=== PATIENT | male | born 1945 | race Caucasian/White ===

== ENCOUNTER 2017-09-18 22:32 | Emergency (ER) | payer MEDICARE, OTHER ==
--- NOTE | 2017-09-19 00:02 | EDM.PDOC ---
ED HPI GENERAL MEDICAL PROBLEM - General Chief Complaint: Gastrointestinal Problem Stated Complaint: ILLNESS Time Seen by Provider: 09/18/17 23:30 Source of Information: Reports: EMS, Care Home Records History Limitations: Reports: Physical Impairment - History of Present Illness INITIAL COMMENTS - FREE TEXT/NARRATIVE: 72-year-old male with a recent stroke has a malfunctioning G-tube which has only been present for 48 hours. It is plugged. Onset: Sudden Duration: Hour(s): (Last 5-6 hours) Location: Reports: Abdomen Associated Symptoms: Denies: Fever/Chills, Nausea/Vomiting - Related Data Allergies Allergy/AdvReac Type Severity Reaction Status Date / Time Penicillins Allergy Hives Verified 09/20/17 08:43 Hssryzf-Gba-Vok Reductase Allergy Cannot Verified 09/20/17 08:43 Inhibitor Remember Home Meds: Home Meds Aspirin 81 mg GTUBE BEDTIME 09/20/17 [History] Calcium Carbonate/Vitamin D3 [Calcium Carbonate/Vitamin D 600 MG-200 Unit] 1 tab GTUBE DAILY 09/20/17 [History] Escitalopram [Lexapro] 10 mg PO BEDTIME 09/20/17 [History] Flecainide Acetate 75 mg GTUBE BID 09/20/17 [History] Multivitamin [Multivitamins] 1 each PO DAILY 09/20/17 [History] Rivaroxaban [Xarelto] 20 mg GTUBE DAILY 09/20/17 [History] Rosuvastatin [Crestor] 10 mg GTUBE ASDIRECTED 09/20/17 [History] Tamsulosin HCl [Flomax] 0.8 mg GTUBE BEDTIME 09/20/17 [History] Past Medical History HEENT History: Reports: Hard of Hearing, Impaired Vision Cardiovascular History: Reports: Afib, High Cholesterol, [place], Stents, Other (See Below) Other Cardiovascular History: x4 stents Gastrointestinal History: Reports: GERD, Hiatal Hernia Genitourinary History: Reports: Prostate Disorder, Other (See Below) Other Genitourinary History: rodrigues catheter continuous placement Neurological History: Reports: CVA, Other (See Below) Other Neuro History: right side paralysis Psychiatric History: Reports: Depression - Infectious Disease History Infectious Disease History: Reports: Chicken Pox, Mumps, Shingles - Past Surgical History Cardiovascular Surgical History: Reports: Coronary Artery Stent GI Surgical History: Reports: Hernia Repair/Other, Other (See Below) Other GI Surgeries/Procedures: Linx procedure ED ROS GENERAL - Review of Systems Review Of Systems: See Below Constitutional: Denies: Fever, Chills Respiratory: Denies: Shortness of Breath GI/Abdominal: Reports: Abdominal Pain ED EXAM, GI/ABD - Physical Exam Exam: See Below General Appearance: Alert, No Apparent Distress (Patient appears uncomfortable but not distressed) Respiratory/Chest: No Respiratory Distress GI/Abdominal Exam: Normal Bowel Sounds, Soft, Tender (Abdomen is tender to palpation, especially around the G-tube) Neurological: Alert Skin Exam: Warm, Dry Course - Vital Signs Last Recorded V/S: Last Vital Signs Temp 97.5 F 09/19/17 00:05 Pulse 92 09/19/17 05:32 Resp 15 09/19/17 05:32 BP 127/79 09/19/17 05:32 Pulse Ox 93 L 09/19/17 05:32 - Orders/Labs/Meds Meds: Medications Discontinued Medications Generic Name Dose Route Start Last Admin Trade Name Jeet PRN Reason Stop Dose Admin Hydromorphone HCl 0.5 mg 09/19/17 00:57 09/19/17 01:31 Dilaudid IVPUSH 09/19/17 00:58 0.5 mg ONETIME ONE Administration Hydromorphone HCl 0.5 mg 09/19/17 06:36 09/19/17 06:51 Dilaudid IVPUSH 09/19/17 06:37 0.5 mg ONETIME ONE Administration Sodium Chloride 1,000 mls @ 150 mls/hr 09/19/17 00:45 09/19/17 01:31 Normal Saline IV 150 mls/hr ASDIRECTED JEIMY Administration - Re-Assessments/Exams Free Text/Narrative Re-Assessment/Exam: 09/19/17 00:02 Several attempts at opening the G-tube were made including passage with a pediatric stylette which was unsuccessful. It was also very painful for the patient. I did consult interventional radiology in [place], and they recommended it be replaced under direct visualization at [facility] tomorrow morning at 9 AM. 09/19/17 01:57 [facility] call physician did not feel comfortable admitting the patient here , and [facility] would not accept him in transfer as it was not necessary. The patient was then watched in the emergency room until 7 AM then transfer by ambulance was arranged to go to [place] for his procedure. Maintenance fluids of 150 mL of normal saline an hour were maintained and the patient was given 0.5 mg of IV Dilaudid for pain control. Departure - Departure Time of Disposition: 07:20 Disposition: DC/Tfer to Other Condition: Fair Clinical Impression: Malfunctioning jejunostomy tube - Discharge Information Referrals: PCP,None [Primary Care Provider] - Forms: ED Department Discharge Care Plan Goals: Patient will be transported to [facility] in [place] for interventional radiology replacement of the JG tube
[2017-09-19] MEDS ORDERED: Sodium Chloride 0.9% 1,000 ML IV SCH (00:45)
[2017-09-19] MEDS ORDERED: HYDROmorphone 0.5 MG/0.5 ML Syringe IVPUSH ONE ×2 (00:57→06:36)
== END 2017-09-19 07:20 | disposition other institution (70) ==
LOC: JP.ED 22:32
DX: K94.23 Gastrostomy malfunction (principal); I63.9 Cerebral infarction, unspecified; I48.91 Unspecified atrial fibrillation; E78.00 Pure hypercholesterolemia, unspecified; Z88.0 Allergy status to penicillin; Z88.8 Allergy status to other drugs, medicaments and biological substances; Z79.899 Other long term (current) drug therapy; Z79.82 Long term (current) use of aspirin; Z79.01 Long term (current) use of anticoagulants
CPT/HCPCS: 96361; 96374; 96376; 99284; J1170; J7030

== ENCOUNTER 2017-09-20 08:20 | Emergency (ER) | payer MEDICARE, OTHER ==
--- NOTE | 2017-09-20 09:16 | EDM.PDOC ---
ED HPI GENERAL MEDICAL PROBLEM - General Chief Complaint: General Stated Complaint: MEDICAL VIA [facility] Time Seen by Provider: 09/20/17 08:58 Source of Information: Reports: Patient, Old Records, RN Notes Reviewed History Limitations: Reports: Physical Impairment - History of Present Illness INITIAL COMMENTS - FREE TEXT/NARRATIVE: 72-year-old gentleman transferred from [facility] for plugged feeding tube he was just in the emergency department within the last 24 hours same complaint transfer to [facility] for replacement of feeding tube by interventional radiology - Related Data Allergies Allergy/AdvReac Type Severity Reaction Status Date / Time Penicillins Allergy Hives Verified 09/20/17 08:43 Mnqwjwj-Pse-Yod Reductase Allergy Cannot Verified 09/20/17 08:43 Inhibitor Remember Home Meds: Home Meds Aspirin 81 mg GTUBE BEDTIME 09/20/17 [History] Calcium Carbonate/Vitamin D3 [Calcium Carbonate/Vitamin D 600 MG-200 Unit] 1 tab GTUBE DAILY 09/20/17 [History] Escitalopram [Lexapro] 10 mg PO BEDTIME 09/20/17 [History] Flecainide Acetate 75 mg GTUBE BID 09/20/17 [History] Multivitamin [Multivitamins] 1 each PO DAILY 09/20/17 [History] Rivaroxaban [Xarelto] 20 mg GTUBE DAILY 09/20/17 [History] Rosuvastatin [Crestor] 10 mg GTUBE ASDIRECTED 09/20/17 [History] Tamsulosin HCl [Flomax] 0.8 mg GTUBE BEDTIME 09/20/17 [History] Past Medical History HEENT History: Reports: Hard of Hearing, Impaired Vision Cardiovascular History: Reports: Afib, CAD, High Cholesterol, [place], Stents, Other (See Below) Other Cardiovascular History: x4 stents Gastrointestinal History: Reports: GERD, Hiatal Hernia Genitourinary History: Reports: Prostate Disorder, Other (See Below) Other Genitourinary History: rodrigues catheter continuous placement Neurological History: Reports: CVA, Other (See Below) Other Neuro History: right side paralysis Psychiatric History: Reports: Depression - Infectious Disease History Infectious Disease History: Reports: Chicken Pox, Mumps, Shingles - Past Surgical History Cardiovascular Surgical History: Reports: Coronary Artery Stent GI Surgical History: Reports: Hernia Repair/Other, Other (See Below) Other GI Surgeries/Procedures: Linx procedure Social & Family History - Tobacco Use Smoking Status *Q: Unknown Ever Smoked - Caffeine Use Caffeine Use: Reports: None - Recreational Drug Use Recreational Drug Use: No ED ROS GENERAL - Review of Systems Review Of Systems: Unable To Obtain ED EXAM, GENERAL - Physical Exam Exam: See Below Exam Limited By: No Limitations General Appearance: Alert, WD/WN, No Apparent Distress Respiratory/Chest: No Respiratory Distress GI/Abdominal: Soft, Non-Tender Course - Vital Signs Last Recorded V/S: Last Vital Signs Temp 95.5 F 09/20/17 08:50 Pulse 78 09/20/17 10:05 Resp 16 09/20/17 10:05 BP 115/64 09/20/17 10:05 Pulse Ox 93 L 09/20/17 10:05 Departure - Departure Time of Disposition: 11:17 Disposition: DC/Tfer to Acute Hospital 02 Condition: Poor Clinical Impression: Malfunctioning jejunostomy tube - Discharge Information Referrals: PCP,None [Primary Care Provider] - Forms: ED Department Discharge - Assessment/Plan Plan: Assessment Acuity = acute Site and laterality = blocked PEG tube Etiology = probably related to medications Manifestations = none Location of injury = Home Lab values = none Plan Called discussed case with interventional radiology at [facility] they agreed to evaluate the patient and replace the catheter unfortunately we don't have means to transport him so therefore he'll be up to be transported EMS services nonemergent estimated time before transport 2-2-1/2 hours This note was dictated using [employer] voice recognition software please call with any questions on syntax or grammar.
== END 2017-09-20 12:15 ==
LOC: JP.ED 08:20
DX: K94.13 Enterostomy malfunction (principal); F32.9 Major depressive disorder, single episode, unspecified; Z88.0 Allergy status to penicillin; Z79.82 Long term (current) use of aspirin; Z88.8 Allergy status to other drugs, medicaments and biological substances
CPT/HCPCS: 99284

== ENCOUNTER 2024-11-08 13:57 | Emergency (ER) | payer MEDICARE, OTHER ==
[2024-11-08 14:17] LABS: BASOPHILS ABSOLUTE AUTO 0.04 K/uL (0.00-0.10); BASOPHILS PERCENT AUTO 0.4 % (0.1-1.3); EOSINOPHILS ABSOLUTE AUTO 0.40 K/uL (0.00-0.40); EOSINOPHILS PERCENT AUTO 3.6 % (0.0-5.4); IMMATURE GRAN ABSOLUTE AUTO 0.04 K/uL (0.00-0.23); IMMATURE GRAN PERCENT AUTO 0.4 % (0.0-0.7); LYMPHOCYTES ABSOLUTE AUTO 3.98 K/uL (0.8-3.3); LYMPHOCYTES PERCENT AUTO 35.5 % (11.4-47.7); MONOCYTES ABSOLUTE AUTO 0.91 K/uL (0.20-0.90); MONOCYTES PERCENT AUTO 8.1 % (3.3-12.6); NEUTROPHILS ABSOLUTE AUTO 5.85 K/uL (1.0-7.6); NEUTROPHILS PERCENT AUTO 52.0 % (40.0-78.1); PLATELET COUNT,PLT 207 K/uL (130-375); RED BLOOD CELL COUNT 4.36 M/uL (4.14-5.76); WHITE BLOOD CELL COUNT,WBC 11.2 K/uL (3.2-11.0)
[2024-11-08 14:37] LABS: A/G RATIO 0.7 (1.2-2.2); ALANINE AMINOTRANSFERASE,ALT 28 U/L (12-78); ASPARTATE AMNIOTRANSFERASE,AST 21 U/L (15-37); BILIRUBIN TOTAL 0.3 mg/dL (0.2-1.0); BLOOD UREA NITROGEN,BUN 15 mg/dL (7-18); CARBON DIOXIDE,CO2 28 mmol/L (21-32); CHLORIDE,CL 104 mmol/L (100-108); CREATININE 1.3 mg/dL (0.8-1.3); EST CRCL DRUG DOSING (CG) 51.40 mL/min; ESTIMATED GFR 56 mL/min (>60); GLUCOSE RANDOM 109 mg/dL (74-106); POTASSIUM,K 4.3 mmol/L (3.6-5.2); PROTEIN TOTAL,TP 7.3 g/dL (6.4-8.2); SODIUM,NA 137 mmol/L (140-148)
[2024-11-08 15:50] LABS: APPEARANCE,URINE CLEAR (CLEAR); GLUCOSE,URINE NEGATIVE (NEGATIVE); OCCULT BLOOD,URINE TRACE-INTACT (NEGATIVE)
[2024-11-08 16:03] LABS: SQUAMOUS EPITHELIAL CELLS,UR FEW /HPF; UROTHELIAL CELLS,URINE NOT SEEN /HPF
== END 2024-11-08 17:30 | disposition home or self-care (01) ==
LOC: JP.ED 13:57
DX: R56.9 Unspecified convulsions (principal); E78.00 Pure hypercholesterolemia, unspecified; Z88.0 Allergy status to penicillin; Z79.899 Other long term (current) drug therapy
CPT/HCPCS: 36415; 70450; 70450-26; 80053; 81001; 85025; 93005; 93010; 99283; 99285